=== PATIENT | female | born 2000 | race Two or more races ===

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

== ENCOUNTER 2019-12-10 23:53 | Emergency (ER) | payer MEDICAID ==
[~2019-12-10] VITALS: Ht 162.6 cm; Wt 68.5 kg
--- NOTE | 2019-12-11 00:05 | NUR ---
Dr. [place] at bedside for MSE
[2019-12-11] MEDS ORDERED: CYCLOBENZAPRINE HCL 10 MG TABLET PO ONE (00:15)
[2019-12-11] MEDS ORDERED: IBUPROFEN 800 MG TABLET PO ONE (00:15)
[2019-12-11] MEDS ORDERED: IBUPROFEN 800 MG TABLET ONE (00:17)
[2019-12-11] MEDS ORDERED: CYCLOBENZAPRINE HCL 10 MG TABLET ONE (00:17)
--- NOTE | 2019-12-11 00:21 | NUR ---
Patient discharged to home in stable condition. Written and verbal after care instructions given. Patient verbalizes understanding of instructions. Stressed follow up or return to ER for worsening s/s. aa/ox4. able to speak in complete sentences respirations even and unlabored no s/s of distress ambulatory with steady gait instructed pt not to drive pt's mother will drive pt home all belongings with pt
[2019-12-11 00:22] VITALS: BP 137/78
== END 2019-12-11 00:22 | disposition home or self-care (01) ==
LOC: ER 12-11
DX: S29.012A Strain of muscle and tendon of back wall of thorax, initial encounter (principal); X58.XXXA Exposure to other specified factors, initial encounter; Y92.89 Other specified places as the place of occurrence of the external cause; M62.830 Muscle spasm of back
CPT/HCPCS: A4663

== ENCOUNTER 2020-07-21 14:57 | Emergency (ER) | payer MEDICAID ==
[~2020-07-21] VITALS: Ht 162.6 cm; Wt 65.8 kg
--- NOTE | 2020-07-21 15:10 | NUR ---
chaperoned md with vaginal exam. pt tolerated well.
[2020-07-21 16:06] LABS: *BILIRUBIN,URIN NEGATIVE (NEGATIVE); *BLOOD, URINE NEGATIVE (NEGATIVE); *COLOR,URINE LIGHT YELLOW (YELLOW); *KETONES,URINE NEGATIVE (NEGATIVE); *UROBILINOGEN,URINE 0.2 E.U./dl (NORMAL); LEUKOCYTE ESTERASE ,URINE TRACE (NEGATIVE); NITRITE, URINE NEGATIVE (NEGATIVE); UGLUCOSE NEGATIVE (NEGATIVE)
[2020-07-21 16:07] LABS: *URINE HCG, QUAL NEGATIVE (NEGATIVE)
[2020-07-21 16:13] LABS: *CLARITY,URINE HAZY (CLEAR); BACTERIA,URINE MODERATE /HPF (NONE SEEN); RBC,URINE 0-3 /HPF (0-3); SQUAMOUS EPITHELIAL CELL,UR FEW /HPF (NONE SEEN)
[2020-07-21] MEDS ORDERED: CLIN40CR9 VG (16:14)
--- NOTE | 2020-07-21 16:26 | NUR ---
Patient discharged to home in stable condition. Written and verbal after care instructions given. Patient verbalizes understanding of instructions. Stressed follow up or return to ER for worsening s/s.
[2020-07-23 07:06] LABS: *GC NAA Negative (Negative); *TRIC.VAG. NAA Negative (Negative)
== END 2020-07-21 16:27 | disposition home or self-care (01) ==
LOC: ER 14:57
DX: N76.0 Acute vaginitis (principal); R82.71 Bacteriuria
CPT/HCPCS: 84703; 87077; 87086; 87210; 87491; A4663

== ENCOUNTER 2020-12-23 14:15 | Emergency (ER) | payer MEDICAID, OTHER ==
[~2020-12-23] VITALS: Ht 162.6 cm; Wt 66.7 kg
[~2020-12-23 14:15] MED LIST: CLIN40CR9 VG
--- NOTE | 2020-12-23 15:47 | NUR ---
Female furnace process supervisor accompanied female patient for ( [employer] ).
--- NOTE | 2020-12-23 16:15 | NUR ---
Female fisher swordfish accompanied female patient for (Dr Gongora).
[2020-12-23 16:38] LABS: *URINE HCG, QUAL NEGATIVE (NEGATIVE)
[2020-12-23 17:54] VITALS: BP 119/55
== END 2020-12-23 17:55 | disposition home or self-care (01) ==
LOC: ER 14:15
DX: N63.20 Unspecified lump in the left breast, unspecified quadrant (principal); R11.0 Nausea; N60.19 Diffuse cystic mastopathy of unspecified breast
CPT/HCPCS: 76642; 84703; A4663

== ENCOUNTER 2021-04-13 13:17 | Emergency (ER) | payer OTHER ==
[~2021-04-13] VITALS: Ht 160 cm; Wt 65.8 kg
[2021-04-13] MEDS ORDERED: IV NORMAL SALINE 250 ML IV ONE (13:59)
[2021-04-13] MEDS ORDERED: IOHEXOL 300MG/ML 100 ML INFUS..BTL ONE (13:59)
[2021-04-13] MEDS ORDERED: SWABABLE VALVE TRANSFER SET EA MC ONE (13:59)
[2021-04-13] MEDS ORDERED: ACETAMINOPHEN 325 MG TABLET PO ONE (14:00)
[2021-04-13] MEDS ORDERED: IV NORMAL SALINE 1000 ML BAG IV ONE (14:00)
[2021-04-13] MEDS ORDERED: ACETAMINOPHEN 325 MG TABLET ONE (14:01)
[2021-04-13 14:19] LABS: HEMATOCRIT 39.6 % (31.2-41.9); MEAN CORPUSCULAR HEMOGLOBIN 30.8 uug (24.7-32.8); MEAN CORPUSCULAR VOLUME 91.8 fL (75.5-95.3); PLATELET COUNT (AUTO) 225 K/uL (179-408)
[2021-04-13 14:24] LABS: CREATININE 0.9 mg/dL (0.6-1.3)
[2021-04-13 14:25] LABS: *BILIRUBIN,URIN NEGATIVE (NEGATIVE); *COLOR,URINE YELLOW (YELLOW); *KETONES,URINE NEGATIVE (NEGATIVE); *URINE HCG, QUAL NEGATIVE (NEGATIVE); *UROBILINOGEN,URINE 0.2 E.U./dl (NORMAL); LEUKOCYTE ESTERASE ,URINE 2+ (NEGATIVE); NITRITE, URINE POSITIVE (NEGATIVE); UGLUCOSE NEGATIVE (NEGATIVE)
[2021-04-13 14:26] LABS: *BLOOD, URINE TRACE (NEGATIVE)
[2021-04-13 14:30] LABS: BILIRUBIN,DIRECT 0.1 mg/dL (0.0-0.2); BILIRUBIN,TOTAL 0.5 mg/dL (0.2-1.0); TOTAL PROTEIN, SERUM 8.6 g/dL (6.4-8.2)
[2021-04-13 14:30] LABS: *CLARITY,URINE CLOUDY (CLEAR)
[2021-04-13] MEDS ORDERED: KETOROLAC TROMETHAMINE 15 MG INJ IVP ONE (14:30)
[2021-04-13] MEDS ORDERED: CEFTRIAXONE 1 G in IV DEXTROSE 5% 50 ML IV ONE (14:30)
[2021-04-13 14:31] LABS: BACTERIA,URINE MANY /HPF (NONE SEEN); SQUAMOUS EPITHELIAL CELL,UR MODERATE /HPF (NONE SEEN); WBC,URINE 20-50 /HPF (0-3)
[2021-04-13] MEDS ORDERED: KETOROLAC TROMETHAMINE 15 MG INJ ONE (14:34)
[2021-04-13] MEDS ORDERED: CEFTRIAXONE /D5W 50ML IVPB **ER PYXIS IV ONE (14:40)
--- NOTE | 2021-04-13 15:00 | NUR ---
PT BACK FROM CT.
[2021-04-13] MEDS ORDERED: CEFD300C3 PO (15:37)
[2021-04-13 15:44] VITALS: BP 111/61
== END 2021-04-13 15:51 | disposition home or self-care (01) ==
LOC: ER 13:17
DX: N12 Tubulo-interstitial nephritis, not specified as acute or chronic (principal); R00.0 Tachycardia, unspecified; R50.9 Fever, unspecified; Z20.822 Contact with and (suspected) exposure to COVID-19; R94.31 Abnormal electrocardiogram [ECG] [EKG]; E87.6 Hypokalemia; Z87.440 Personal history of urinary (tract) infections
CPT/HCPCS: 36415; 71045; 74177; 80048; 80076; 81001; 83605; 84145; 84484; 84703; 85025; 85730; 87040 ×2; 87086; 87426; 93005; 96361; 96365; 96375; 99285; J0696; J1885; Q9967; 70030-TC; 87077; A4663; J7030; J7050

== ENCOUNTER 2021-07-12 16:22 | Emergency (ER) | payer OTHER ==
[~2021-07-12] VITALS: Ht 162.6 cm; Wt 64.9 kg
[~2021-07-12 16:22] MED LIST changes: +CEFD300C3 PO
[2021-07-12 17:03] LABS: HEMATOCRIT 37.8 % (31.2-41.9); MEAN CORPUSCULAR HEMOGLOBIN 30.6 uug (24.7-32.8); MEAN CORPUSCULAR VOLUME 91.4 fL (75.5-95.3); PLATELET COUNT (AUTO) 314 K/uL (179-408)
[2021-07-12] MEDS ORDERED: ONDANSETRON ODT 4 MG TAB.RAPDIS SL ONE (17:15)
[2021-07-12 17:18] LABS: ALANINE AMINOTRANSFERASE 23 U/L (14-59); ALKALINE PHOSPHATASE 69 U/L (50-136); ASPARTATE AMINOTRANSFERASE 24 U/L (15-37); BILIRUBIN,DIRECT 0.1 mg/dL (0.0-0.2); BILIRUBIN,TOTAL 0.7 mg/dL (0.2-1.0); CARBON DIOXIDE 24 mmol/L (21-32); CHLORIDE 104 mmol/L (98-107); CREATININE 0.8 mg/dL (0.6-1.3); GLUCOSE 112 mg/dL (74-106); POTASSIUM 3.5 mmol/L (3.5-5.1); TOTAL PROTEIN, SERUM 8.9 g/dL (6.4-8.2); UREA NITROGEN, BLOOD 14 mg/dL (7-18)
[2021-07-12] MEDS ORDERED: ONDANSETRON ODT 4 MG TAB.RAPDIS ONE (17:25)
[2021-07-12] MEDS ORDERED: IV NORMAL SALINE 1000 ML BAG IV ONE (18:30)
[2021-07-12] MEDS ORDERED: METOCLOPRAMIDE HCL 10 MG/2 ML VIAL IV ONE ×2 (18:30)
[2021-07-12] MEDS ORDERED: METOCLOPRAMIDE HCL 10 MG/2 ML VIAL ONE (18:41)
[2021-07-12] MEDS ORDERED: ONDA4TAB5 PO (19:24)
--- NOTE | 2021-07-12 19:34 | NUR ---
Patient discharged to home in stable condition. Written and verbal after care instructions given. Patient verbalizes understanding of instructions. Stressed follow up or return to ER for worsening s/s. pt ambulated with steady gait. denies pain.
[2021-07-12 19:35] VITALS: BP 122/70
== END 2021-07-12 19:36 | disposition home or self-care (01) ==
LOC: ER 16:24
DX: R07.89 Other chest pain (principal); R11.2 Nausea with vomiting, unspecified; Z82.49 Family history of ischemic heart disease and other diseases of the circulatory system; R00.1 Bradycardia, unspecified
CPT/HCPCS: 36415; 71045; 80048; 80076; 83690; 83880; 84484 ×2; 84702; 85025; 85379; 85730; 93005; 96361; 96374; 96375; 99285; J2765; A4663; J7030; Q0162

== ENCOUNTER 2021-12-15 11:24 | Emergency (ER) | payer OTHER ==
[~2021-12-15] VITALS: Ht 160 cm; Wt 64.9 kg
[~2021-12-15 11:24] MED LIST changes: +ONDA4TAB5 PO
[2021-12-15 12:04] LABS: *BILIRUBIN,URIN NEGATIVE (NEGATIVE); *CLARITY,URINE CLEAR (CLEAR); *COLOR,URINE YELLOW (YELLOW); *KETONES,URINE NEGATIVE (NEGATIVE); *UROBILINOGEN,URINE 0.2 E.U./dl (NORMAL); LEUKOCYTE ESTERASE ,URINE 3+ (NEGATIVE); NITRITE, URINE NEGATIVE (NEGATIVE); PH,URINE 7.5 (5.0-8.0); UGLUCOSE NEGATIVE (NEGATIVE)
[2021-12-15 12:05] LABS: *URINE HCG, QUAL NEGATIVE (NEGATIVE)
[2021-12-15 12:06] LABS: *BLOOD, URINE TRACE (NEGATIVE)
[2021-12-15] MEDS ORDERED: IBUP-1955 PO (12:39)
[2021-12-15] MEDS ORDERED: CEPH500T PO (12:39)
[2021-12-15] MEDS ORDERED: CEFTRIAXONE 1 G in IV DEXTROSE 5% 50 ML IV ONE (12:45)
[2021-12-15] MEDS ORDERED: IV NORMAL SALINE 1000 ML BAG IV ONE (12:45)
[2021-12-15] MEDS ORDERED: KETOROLAC TROMETHAMINE 15 MG INJ IVP ONE (12:45)
[2021-12-15 12:57] LABS: BACTERIA,URINE FEW /HPF (NONE SEEN); RBC,URINE 0-3 /HPF (0-3); SQUAMOUS EPITHELIAL CELL,UR MODERATE /HPF (NONE SEEN)
[2021-12-15] MEDS ORDERED: KETOROLAC TROMETHAMINE 15 MG INJ ONE (12:58)
[2021-12-15] MEDS ORDERED: CEFTRIAXONE /D5W 50ML IVPB **ER PYXIS IV ONE (12:58)
--- NOTE | 2021-12-15 13:23 | NUR ---
Zeyad tolbert in [facility] - 12/15/21 at 1324 by SHIVANI 2nd call to radiologists.
--- NOTE | 2021-12-15 14:06 | NUR ---
Removed IV intact, site okay, bandaged. Gave pt RX and d/c instructions, pt verbalized understanding.
== END 2021-12-15 14:10 | disposition home or self-care (01) ==
LOC: ER 11:24
DX: N39.0 Urinary tract infection, site not specified (principal); Z87.440 Personal history of urinary (tract) infections; G89.29 Other chronic pain; M54.50 Low back pain, unspecified
CPT/HCPCS: 99284; 96374; 96375; 81001; 84703; 87086; J0696; J1885; J7040; A4663

== ENCOUNTER 2024-12-31 08:45 | Emergency (ER) | payer SELFPAY ==
[~2024-12-31] VITALS: Ht 160 cm; Wt 68.0 kg
[~2024-12-31 08:45] MED LIST changes: +CEPH500T PO; +IBUP-1955 PO
[2024-12-31 09:09] LABS: *BILIRUBIN,URIN NEGATIVE (NEGATIVE); *CLARITY,URINE CLEAR (CLEAR); *COLOR,URINE YELLOW (YELLOW); *KETONES,URINE NEGATIVE (NEGATIVE); *PROTEIN,URINE NEGATIVE (NEGATIVE); *UROBILINOGEN,URINE 0.2 E.U./dl (NORMAL); LEUKOCYTE ESTERASE ,URINE NEGATIVE (NEGATIVE); NITRITE, URINE NEGATIVE (NEGATIVE); UGLUCOSE NEGATIVE (NEGATIVE)
[2024-12-31 09:15] LABS: *BLOOD, URINE TRACE (NEGATIVE)
[2024-12-31 09:17] LABS: *URINE HCG, QUAL NEGATIVE (NEGATIVE); SQUAMOUS EPITHELIAL CELL,UR FEW /HPF (NONE SEEN)
[2024-12-31 10:17] LABS: PLATELET COUNT (AUTO) 253 K/uL (179-408); RED BLOOD CELL COUNT(AUTO) 3.57 MIL/uL (3.63-4.92); RED CELL DISTRIBUTION WIDTH 14.8 % (12.3-17.7); WHITE BLOOD COUNT (AUTO) 9.3 K/uL (3.8-11.8)
[2024-12-31 10:30] VITALS: BP 118/82
[2024-12-31 10:47] LABS: IRON, SERUM 9 ug/dL (50-175)
[2024-12-31] MEDS ORDERED: FERR325T23 PO (11:20)
[2024-12-31 11:28] VITALS: BP 120/80; TEMP 98; O2SAT 98
== END 2024-12-31 11:29 | disposition home or self-care (01) ==
LOC: ER 08:45
DX: N39.0 Urinary tract infection, site not specified (principal); D50.9 Iron deficiency anemia, unspecified; M79.10 Myalgia, unspecified site; R07.9 Chest pain, unspecified; R11.0 Nausea; Z87.39 Personal history of other diseases of the musculoskeletal system and connective tissue; Z60.2 Problems related to living alone
CPT/HCPCS: 36415; 71045; 83550; 84703; 85025; 87086; A4606; A4663